=== PATIENT | female | born 1965 | race Caucasian/White ===

== ENCOUNTER 2025-10-25 18:05 | Emergency (ER) | payer OTHER ==
[~2025-10-25] VITALS: Ht 154.9 cm; Wt 55.3 kg
[~2025-10-25 18:05] MED LIST: ADVAIR 250/501 EA INH; ALLOPURINOL300 MG PO; AVPAK EXTENDED100 M1 PO; BENICAR HCT 401 EAC1 PO; CARVEDILOL12.5 MG PO; CITALOPRAM40 MG PO; D3-200050 MCG PO; FLONASE ALLERG9.9 ML NAS; Imdur SA60 MG PO; METHOCARBAMOL750 M1 PO; PRAVASTATIN SOD40 MG PO
[2025-10-25] MEDS ORDERED: Albuterol Sulf/Ipratropium 3 ML VIAL NEB ONE (18:50)
[2025-10-25 19:03] LABS: BASO # 0.1 10*3/uL (0.0-0.1); BASO % 1.3 % (0.0-1.0); EOS # 0.4 10*3/uL (0.0-0.4); EOS % 7.4 % (1.0-4.0); MEAN CELL VOLUME 96.9 fl (81.0-99.0); MEAN CORPUSCULAR HGB 31.4 pg (27.0-31.0); MEAN PLATELET VOLUME 8.9 fl (9.6-12.3); MONO # 0.7 10*3/uL (0.1-1.0); MONO % 12.1 % (3.0-9.0); NEUT # 3.9 10*3/uL (2.3-7.9); NEUT % 65.9 % (47.0-73.0); NUCLEATED RED BLOOD CELL 0.0 % (0.0-0.0); NUCLEATED RED BLOOD CELL 0.0 10*3/uL (0.0-0.0); PLATELET COUNT AUTOMATED 176 10*3/uL (130-400); RED CELL DISTRI WIDTH 13.2 % (0-14.5)
[2025-10-25 19:21] LABS: BUN 7 mg/dl (9-23)
[2025-10-25] MEDS ORDERED: ALBUTEROL 8 GM INHALER INH ONE (19:40)
== END 2025-10-25 19:43 | disposition home or self-care (01) ==
LOC: ED 18:05
PROVIDERS: Nurse Practitioner Family
DX: B97.4 Respiratory syncytial virus as the cause of diseases classified elsewhere (principal); I10 Essential (primary) hypertension; J45.909 Unspecified asthma, uncomplicated; I25.10 Atherosclerotic heart disease of native coronary artery without angina pectoris; E78.5 Hyperlipidemia, unspecified; Z98.890 Other specified postprocedural states; Z91.013 Allergy to seafood; Z20.822 Contact with and (suspected) exposure to COVID-19